=== PATIENT | male | born 1960 | race Caucasian/White ===

== ENCOUNTER 2016-09-23 07:43 | Day surgery (SDC) | payer OTHER ==
[~2016-09-23] VITALS: Ht 165.1 cm; Wt 86.3 kg
[2016-09-23] VITALS (24 sets, daily range): BP systolic 101–148; BP diastolic 51–90; PULSE 72–92; RESP 14–30; Ht 165.1 cm; Wt 86.3 kg
[~2016-09-23 07:43] MED LIST: ASPI81TA3 PO; CLOP75TA4 PO; GEMF600T PO; GLIP-95 PO; ISOS60TA PO; LISI10TA2 PO; METF1000 PO; METO-53 PO; NIT4 SL; RANEXA PO; SOD CHLORIDE 0.9% 1,000 ML IV SCH
[2016-09-23 08:49] LABS: ADD SCAN DIFF NO
[2016-09-23 08:50] LABS: BASOPHIL # 0.1 10^3/ul (0.0-0.1); BASOPHILS % 0.4 % (0.0-2.0); EOSINOPHILS # 0.2 10^3/ul (0.0-0.5); EOSINOPHILS % 1.4 % (0.0-7.0); HEMATOCRIT 49.6 % (42.0-52.0); HEMOGLOBIN 16.9 g/dl (14.0-18.0); LYMPHOCYTES # 2.7 10^3/ul (0.8-2.9); LYMPHOCYTES % 22.8 % (15.0-51.0); MEAN CORPUSCULAR HEMOGLOBIN 30.6 pg (29.0-33.0); MEAN CORPUSCULAR HGB CONC 34.1 g/dl (32.0-37.0); MEAN CORPUSCULAR VOLUME 89.7 fl (82.0-101.0); MEAN PLATELET VOLUME 10.7 fl (7.4-10.4); MONOCYTE # 0.7 10^3/ul (0.3-0.9); MONOCYTES % 6.3 % (0.0-11.0); NEUTROPHILS % 68.4 % (39.0-77.0); PLATELET COUNT 264 10^3/UL (140-415); RED BLOOD COUNT 5.53 10^6/ul (4.70-6.10); RED CELL DISTRIBUTION WIDTH 13.5 % (11.5-14.5); WHITE BLOOD COUNT 11.7 10^3/ul (4.8-10.8)
[2016-09-23] MEDS ORDERED: GLIM4TAB PO (09:09)
[2016-09-23] MEDS ORDERED: METO100T13 PO (09:09)
[2016-09-23 09:15] LABS: INR 0.98
[2016-09-23 09:19] LABS: CALCIUM 9.3 mg/dl (8.4-10.2); CREATININE 0.73 mg/dl (0.61-1.24); POTASSIUM 4.6 mmol/L (3.5-5.1)
[2016-09-23] MEDS ORDERED: IODIXANOL LOCM 100 ML BTL ONE (09:46)
[2016-09-23] MEDS ORDERED: NITROGLYCERIN (IC) 100 MCG/ML INJ ONE (09:46)
[2016-09-23] MEDS ORDERED: LIDOCAINE 1% (MDV) 20 ML INJ ONE (09:46)
[2016-09-23] MEDS ORDERED: FENTAnyl 50 MCG/ML VIAL ONE (09:46)
[2016-09-23] MEDS ORDERED: VERAPAMIL 5 MG INJ ONE (09:46)
[2016-09-23] MEDS ORDERED: HEPARIN 1000 UNITS/ML 10 ML INJ ONE (09:46)
[2016-09-23] MEDS ORDERED: MIDAZOLAM 1 MG/ML 2 ML INJ ONE (09:46)
[2016-09-23] MEDS ORDERED: HEPARIN 1000 UNITS/NS (A-LINE) 1,000 ML ONE (09:46)
[2016-09-23] MEDS ORDERED: SOD CHLORIDE 0.9% 1,000 ML IV SCH (11:03)
[2016-09-23] MEDS ORDERED: METF1000 PO (11:07)
--- NOTE | 2016-09-23 11:11 | PDOCDIS ---
Discharge Instructions CONDITION Patient Condition: Good HOME CARE INSTRUCTIONS: Diet Instructions: Low Fat /Cholesterol ACTIVITY: Activity Restrictions: Avoid heavy lifting (x 3 days) Do not Drive (x 1 day) OTHER ORDERS: Other Orders: hold metformin until 09/26/16 MIYA VALIENTE MD Sep 23, 2016 11:11
[2016-09-23] MEDS ORDERED: AL HYDROX/MG HYDROX/SIMETH 30 ML CUP PO PRN (11:30)
[2016-09-23] MEDS ORDERED: ACETAMINOPHEN 325 MG TAB PO PRN (11:30)
[2016-09-23] MEDS ORDERED: ONDANSETRON 4 MG INJ IV PRN (11:30)
--- NOTE | 2016-09-23 11:37 | CARRPT ---
DATE OF PROCEDURE: 09/23/2016 PROCEDURES: 1. Left heart catheterization. 2. Right and left carotid angiogram. 3. Interpretation and supervision of right and left angiogram. 4. Left ventricular pressure measurements. 5. Right radial artery approach. HISTORY: This 56-year-old male presents with symptoms of unstable angina and known history of coron rosita artery disease. FINDINGS: Hemodynamics: LV pressure was 161/-2 with EDP of 20. Aortic pressure was 110/61. There was a 48 mm peak to peak gradient. Left main was a large caliber vessel with distal 20% stenosis. Circumflex is a medium caliber vessel. There is an ostial 90% stenosis. The first obtuse marginal has a 50% mid stenosis, the AV groove circumflex portion has an 80% stenosis. LAD is a medium caliber vessel. There is a mid stent with 20% in-stent restenosis, a distal 30 to 4 0% stenosis. RCA is a medium caliber vessel and is dominant. The ostial stent is patent with 30% diffuse in-sten t restenosis, mid RCA with 20% stenosis and distal RCA with 30% stenosis. DESCRIPTION OF PROCEDURE: The patient brought to label paster after informed consent. The patient was prepped and draped as per protocol. Right radial access was obtained. A 5/6-Dominican sheath was plac ed in the right radial artery. A 6-Dominican JL3.5 diagnostic catheter was used to engage the left nidia n and angiogram was performed. Next used a 6-Dominican JR4 catheter in attempts to engage the RCA. Wh ile doing so, the catheter followed in the left ventricle. Pressure measurements were obtained as w ell as pullback. Next the RCA angiogram was performed. The patient with evidence of severe ostial circumflex disease. Given the stenosis ____ LAD, would recommend aggressive medical management, saúl ck echocardiogram given the gradients in the left ____ aortic valve. Based on findings we will discu ss further management and care. All catheters and wires were removed. There was no immediate compli cation. DIAGNOSES: 1. Coronary artery disease. 2. Aortic stenosis. COMPLICATIONS: None. BLOOD LOSS: Minimal. RECOMMENDATIONS: Aggressive medical management, echocardiogram to evaluate the aortic valve. Will consider high risk PCI versus surgical intervention. Dictated By: ROSCOE ROLLINS/MIKEY Conf#: [id number] DID#: [id number]
--- NOTE | 2016-09-23 17:55 | RADRPT ---
Echocardiogram Report Patient Name: ISAI PEREZ Gender: Male Date: 1960 Study Date: 23-Sep-2016 Referral Nurse: Marcell Bird RDCS Location: PACU Ref. Physician: ZIYAD SEAMAN Quality: Good Procedures: Transthoracic echocardiogram with complete 2D, M-Mode, and doppler examination. Indications: Aortic Stenosis. Coronary Artery Disease. 2D/M Mode Doppler Measurement Value Normal Ranges Measurement Value Normal Ranges LVIDd 2D 5.4 3.5 - 5.6 cm JUSTUS Vmax 1.0 cm2 LVIDs 2D 3.8 2.1 - 4.1 cm JUSTUS VTI 1.0 cm2 FS 2D 30.0 % AV Mean Sarwat 2.9 m/sec LVPWd 2D 1.0 0.6 - 1.1 cm AV Mean PG 37.0 mmHg IVSd 2D 1.0 0.6 - 1.1 cm AV Peak Sarwat 3.7 m/sec IVS/LVPW 2D 1.0 AV Peak PG 55.0 mmHg AoR Diam 2D 3.1 2.0 - 3.7 cm AV VTI 84.4 cm LA/Ao 2D 1 0 - 1 AI Peak PG 44.0 mmHg EDV 2D 155.0 cm3 AI Peak Sarwat 3.3 m/sec ESV 2D 53.2 cm3 AI PHT 496.0 msec LA Dimen 2D 4.0 2.3 - 4.0 cm LVOT Mean Sarwat 0.7 m/sec LVOT Diam 2.3 cm LVOT Mean PG 2.0 mmHg LVOT Area 4.2 cm2 LVOT Peak Sarwat 0.9 m/sec LVOT Peak PG 3.0 mmHg LVOT VTI 20.5 cm MV E Peak Sarwat 0.7 m/sec MV A Peak Sarwat 0.9 m/sec MV E/A 0.7 MV Decel Time 190 msec MV E/A 0.7 Findings Left Ventricle: Lower limits of normal systolic function. Normal left ventricular cavity size. Normal left ventricular wall thickness. Ejection fraction is visually estimated at 50 %. Tissue Doppler/Mitral Doppler indices are consistent with impaired relaxation (Stage I diastolic dysfunction). Right Ventricle: Normal right ventricular size. Normal right ventricular systolic function. Left Atrium: The left atrium is normal in size. Right Atrium: The right atrium is normal in size. Mitral Valve: Mitral valve leaflets appear mildly thickened. Moderate mitral annular calcification. Trace mitral regurgitation. Aortic Valve: Moderate to severe aortic stenosis. Aortic valve Max velocity 3.70 m/sec. Max PG 55.00 mmHg. Mean PG 37.00 mmHg. Aortic valve area 1.01 cm2. Aortic cusps appear moderately calcified. Mild aortic valve regurgitation. Tricuspid Valve: Normal appearance and function of the tricuspid valve with trace physiologic regurgitation. Pulmonic Valve: Normal pulmonic valve appearance. Pericardium: Normal pericardium with no significant pericardial effusion. Aorta: Normal aortic root. IVC: Dilated IVC without respiratory collapse consistent with elevated right atrial pressure. Conclusions 1.Lower limits of normal systolic function. Normal left ventricular cavity size. Normal left ventricular wall thickness. Ejection fraction is visually estimated at 50 %. Tissue Doppler/Mitral Doppler indices are consistent with impaired relaxation (Stage I diastolic dysfunction). 2.Normal right ventricular size. Normal right ventricular systolic function. 3.The left atrium is normal in size. 4.The right atrium is normal in size. 5.Moderate to severe aortic stenosis. Mild aortic valve regurgitation. 6.No significant valvular stenosis or regurgitation seen of remaining visualized valves. 7.Normal pericardium with no significant pericardial effusion. Electronically Signed By: Ziyad Seaman 23-Sep-2016 17:54:47 -0700 Patient Name: ISAI PEREZ Study Date: 23-Sep-2016 [id number]
== END 2016-09-23 15:15 | disposition home or self-care (01) ==
LOC: SDS 07:43
PROVIDERS: ATTEND Internal Medicine Cardiovascular Disease
DX: I25.10 Atherosclerotic heart disease of native coronary artery without angina pectoris (principal); I35.0 Nonrheumatic aortic (valve) stenosis
CPT/HCPCS: 80048; 82962; 85025; 85610; 85730; 93005; 93306; 93458; C1769; C1887; J1644; J2250; J3010; Q9967; Z7610